=== PATIENT | female | born 1945 | race Caucasian/White ===

== ENCOUNTER 2016-11-13 18:58 | Emergency (ER) | payer MEDICARE ==
[~2016-11-13 18:58] MED LIST: ACTOS45 PO; ALLEGRA180 PO; AMIT25 PO; ARAVA20 PO; ASA5GR PO; B COMPLEX-C OR; BENTYL10 PO; DIOVAN HCT160 MG/25 PO; EDLUAR5 MG SL; EXFORGE1 TA3 PO; EZFE 200200 MG PO; FIORICET OR; FLEX PO; FOLIC PO; FOSAMAX70 MG PO; HYDROCHLOROT25 MG PO; LOP50 PO; LORT7 PO; LORTAB 5 PO; MAXIMUM D3 PO; MOTRIN IB200 MG PO; MTX2.5 PO; MULTIVIT/MIN PO; NASACORTAQ NAS; NORCO1 TA1 PO; OGEN PO; OGEN.625 PO; OGEN1.25 MG OR; P10 PO; P5 PO; PR25 PO; PRILOSEC40 MG PO; PRIN10 PO; PROTONIX PO; PROZAC PO; QUESTRAN4 GM PO; SAS500 PO; TEKTURNA HCT1 TAB PO; TESS PO; TOPAMAX25 PO; VITAMIN D31000 UNIT PO; WELLSR150 PO; X5 PO; ZANTAC150 MG PO; ZYRTEC ALLGY10 MG PO; [UNRECOGNIZED DRUG - OTHER]; [UNRECOGNIZED DRUG - OTHER] PO
[2016-11-13 20:15] LABS: BASOPHILS 0.8 %; BASOPHILS ABSOLUTE 0.04 10/3/uL (0.0-0.16); EOSINOPHILS 12.6 %; ER CBC TAT 0 Hrs 09 Mins; HEMATOCRIT 32.8 % (36.0-48.0); HEMOGLOBIN 10.9 g/dL (12.0-16.0); IMMATURE GRANULOCYTES 0.2 %; IMMATURE GRANULOCYTES ABSOLUTE 0.01 10/3/uL (0.0-0.11); LYMPHOCYTES 32.1 %; LYMPHOCYTES ABSOLUTE 1.53 10/3/uL (0.67-4.30); MEAN PLATELET VOLUME 11.6 fL (9.2-13.0); MONOCYTES 9.9 %; MONOCYTES ABSOLUTE 0.47 10/3/uL (0.21-1.20); NEUTROPHILS 44.4 %; NEUTROPHILS ABSOLUTE 2.12 10/3/uL (2.02-8.40); PLATELET COUNT 248 10/3/uL (150-400); RBC DISTRIBUTION WIDTH 13.4 % (12.0-16.0); RED CELL COUNT 3.51 10/6/uL (4.0-5.6); WHITE BLOOD CELLS 4.8 10/3/uL (4.5-10.5)
[2016-11-13 20:16] LABS: MEAN CORPUS HGB CONC 33.2 g/dL (32.0-36.0); MEAN CORPUSCULAR HEMOGLOB 31.1 pg (26.0-34.0); MEAN CORPUSCULAR VOLUME 93.4 fL (80-100)
[2016-11-13 20:17] LABS: MANUAL DIFF NO %
[2016-11-13 20:22] LABS: PARTIAL THROMBO TIME 27.7 SEC (22.5-37.2); PROTIME (NOT ORD) 12.8 SEC (12.0-14.5)
[2016-11-13 20:33] LABS: CALCIUM, SERUM 9.8 MG/DL (8.5-10.4); CHEST PAIN PROFILE TAT 0 Hrs 27 Mins; CHLORIDE, SERUM 102 MMOL/L (96-112); CO2 (CARBON DIOXIDE) 29 MMOL/L (24-34); CREATININE 1.14 MG/DL (0.55-1.02); GFR AFRICAN AMERICAN 56 ML/MIN (>=60); GFR NON AFRICAN AMERICAN 48 ML/MIN (>=60); GLUCOSE, SERUM 123 MG/DL (60-99); POTASSIUM, SERUM 3.9 MMOL/L (3.5-5.3); SODIUM, SERUM 139 MMOL/L (135-148); TROPONIN I <0.02 NG/ML (<0.05)
[2016-11-13 20:36] LABS: BUN (BLOOD UREA NITROGEN) 20 MG/DL (6-23)
== END 2016-11-14 00:12 | disposition home or self-care (01) ==
LOC: ER 18:58
PROVIDERS: Emergency Medicine
DX: M48.54XA Collapsed vertebra, not elsewhere classified, thoracic region, initial encounter for fracture (principal); R07.89 Other chest pain; I10 Essential (primary) hypertension; F41.9 Anxiety disorder, unspecified; E11.9 Type 2 diabetes mellitus without complications; Z87.891 Personal history of nicotine dependence; Z88.5 Allergy status to narcotic agent; Z88.8 Allergy status to other drugs, medicaments and biological substances; Z79.52 Long term (current) use of systemic steroids; Z79.899 Other long term (current) drug therapy
CPT/HCPCS: 71020; 71275; 80048; 83735; 84484; 85025; 85610; 85730; 93005; 96374; 96375; 99285; J1170; J2405; Q9967